=== PATIENT | female | born 1975 | race Native Hawaiian/Other Pacific Islander ===

== ENCOUNTER 2016-10-07 09:30 | Emergency (ER) | payer OTHER ==
[~2016-10-07] VITALS: Ht 175.3 cm; Wt 117.9 kg
[2016-10-07 09:40] VITALS: TEMP 99.1
[2016-10-07 11:29] VITALS: BP 145/82
== END 2016-10-07 11:29 | disposition home or self-care (01) ==
LOC: ED 09:30
DX: L03.319 Cellulitis of trunk, unspecified (principal); N76.0 Acute vaginitis
CPT/HCPCS: 99284

== ENCOUNTER 2022-10-03 08:30 | Outpatient (CLI) | payer OTHER | END 2022-10-03 19:05 | disposition home or self-care (01) | LOC: MAMMO 08:30 | PROVIDERS: ATTEND Nurse Practitioner Family | DX: Z12.31 Encounter for screening mammogram for malignant neoplasm of breast (principal) ==

== ENCOUNTER 2022-10-17 10:16 | Outpatient (CLI) | payer OTHER | END 2022-10-17 20:55 | disposition home or self-care (01) | LOC: MAMMO 10:16 | PROVIDERS: ATTEND Nurse Practitioner Family | DX: R92.8 Other abnormal and inconclusive findings on diagnostic imaging of breast (principal) ==